=== PATIENT | female | born 1985 | race Caucasian/White ===

== ENCOUNTER 2019-06-09 15:05 | Emergency (ER) | payer OTHER ==
[~2019-06-09] VITALS: Ht 152.4 cm; Wt 79.4 kg
[2019-06-09] MEDS ORDERED: COZAAR100 MG PO ×2 (15:15→15:55)
== END 2019-06-09 16:08 | disposition home or self-care (01) ==
LOC: ED 15:05
DX: Z76.0 Encounter for issue of repeat prescription (principal); I10 Essential (primary) hypertension; F17.200 Nicotine dependence, unspecified, uncomplicated; Z88.0 Allergy status to penicillin; Z79.899 Other long term (current) drug therapy
CPT/HCPCS: 99281

== ENCOUNTER 2020-07-07 14:10 | Emergency (ER) | payer OTHER ==
[~2020-07-07] VITALS: Ht 152.4 cm; Wt 79.4 kg
[~2020-07-07 14:10] MED LIST: COZAAR100 MG PO
[2020-07-07] MEDS ORDERED: ONDANSETRON ODT4 MG SL (15:07)
[2020-07-07] MEDS ORDERED: LORAZEPAM1 MG PO (15:07)
== END 2020-07-07 16:29 | disposition home or self-care (01) ==
LOC: ED 14:10
DX: F43.9 Reaction to severe stress, unspecified (principal); R11.2 Nausea with vomiting, unspecified; I10 Essential (primary) hypertension; F17.200 Nicotine dependence, unspecified, uncomplicated; Z88.0 Allergy status to penicillin; Z79.899 Other long term (current) drug therapy
CPT/HCPCS: 99283

== ENCOUNTER 2021-02-18 12:29 | Emergency (ER) | payer OTHER ==
[~2021-02-18] VITALS: Ht 152.4 cm; Wt 86.2 kg
[~2021-02-18 12:29] MED LIST changes: +LORAZEPAM1 MG PO; +ONDANSETRON ODT4 MG SL
[2021-02-18] MEDS ORDERED: MINIPRESS1 MG PO (12:57)
[2021-02-18] MEDS ORDERED: CHLORDIAZEPOXID25 MG PO (15:17)
[2021-02-18] MEDS ORDERED: ONDANSETRON ODT8 MG PO (15:17)
[2021-02-18] MEDS ORDERED: OMEPRAZOLE20 MG PO (15:17)
== END 2021-02-18 15:41 | disposition home or self-care (01) ==
LOC: ED 12:29
DX: K29.20 Alcoholic gastritis without bleeding (principal); F10.239 Alcohol dependence with withdrawal, unspecified; I10 Essential (primary) hypertension; F17.200 Nicotine dependence, unspecified, uncomplicated; Z88.0 Allergy status to penicillin; Z79.899 Other long term (current) drug therapy
CPT/HCPCS: 80053; 83690; 85025; 96374; 96375; 99284-25; C9113; J2060; J2405; J7030

== ENCOUNTER 2021-10-27 11:57 | Emergency (ER) | payer OTHER ==
[~2021-10-27] VITALS: Ht 152.4 cm; Wt 86.2 kg
[~2021-10-27 11:57] MED LIST changes: +CHLORDIAZEPOXID25 MG PO; +MINIPRESS1 MG PO; +OMEPRAZOLE20 MG PO; +ONDANSETRON ODT8 MG PO
--- OUTSIDE RECORDS SUMMARY | 2021-10-27 12:06 | XMS ---
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 Chilo VISIT COUNT (12 MO.) 3 [facility] TOTAL 3 NOTE: Visits indicate total known visits. ED/C VISIT TRACKING (12 MO.) 10/27/2021 11:58 [facility] TYPE: Emergency COMPLAINT: - FLANK PAIN BOTH SIDES, CHEST TIGHTNESS 10/26/2021 17:47 [facility] TYPE: Emergency COMPLAINT: - FLANK PAIN 02/18/2021 12:[address] [facility] [place] TYPE: Emergency COMPLAINT: - N/V, BURNING STOMACH DIAGNOSES: - Other senior living (current) drug therapy - Nicotine dependence, unspecified, uncomplicated - Alcohol dependence with withdrawal, unspecified - Essential (primary) hypertension - Allergy status to penicillin - Alcoholic gastritis without bleeding - Nausea with vomiting, unspecified INPATIENT VISIT TRACKING (12 MO.) No inpatient visits to display in this time frame [email or web address]
[2021-10-27] MEDS ORDERED: CHLORDIAZEPOXID25 MG PO (13:53)
[2021-10-27] MEDS ORDERED: ONDANSETRON ODT8 MG PO (13:55)
[2021-10-27] MEDS ORDERED: PROTONIX40 MG PO (13:55)
[2021-10-27] MEDS ORDERED: [UNRECOGNIZED DRUG - OTHER] PO (13:55)
== END 2021-10-27 14:52 | disposition home or self-care (01) ==
LOC: ED 11:57
DX: F10.20 Alcohol dependence, uncomplicated (principal); I10 Essential (primary) hypertension; Z88.0 Allergy status to penicillin; Z79.899 Other long term (current) drug therapy
CPT/HCPCS: 99283; A9270